=== PATIENT | female | born 1975 | race Caucasian/White ===

== ENCOUNTER → 2019-04-18 | Outpatient (CLI) | payer OTHER ==
[~2019-04-18] MED LIST: AMOCLA875 PO; HYDACE5 PO; HYDACE5325 PO; NAPR500 PO; PENVK250 PO; PENVK500 PO; RXHYD5325 PO
[2019-04-18 17:23] LABS: BASOPHILS ABSOLUTE AUTO 0.03 K/mm3 (0.00-0.23); BASOPHILS PERCENT AUTO 0 % (0-2); EOSINOPHILS ABSOLUTE AUTO 0.05 K/mm3 (0.00-0.68); EOSINOPHILS PERCENT AUTO 1 % (0-6); Hematocrit 41.8 % (33.0-51.0); Hemoglobin 14.1 g/dL (11.5-16.0); IMMATURE GRAN ABSOLUTE AUTO 0.02 K/mm3 (0.00-0.10); IMMATURE GRAN PERCENT AUTO 0 % (0-1); LYMPHOCYTES ABSOLUTE AUTO 1.78 K/mm3 (0.84-5.20); LYMPHOCYTES PERCENT AUTO 25 % (21-46); MONOCYTES ABSOLUTE AUTO 0.67 K/mm3 (0.16-1.47); MONOCYTES PERCENT AUTO 9 % (4-13); Mean Corpuscular HGB 33.2 pg (26.0-34.0); Mean Corpuscular HGB Conc 33.7 g/dL (31.5-36.5); Mean Corpuscular Volume 98 fL (80-100); Mean Platelet Volume 9.7 fL (9.1-12.4); NEUTROPHILS ABSOLUTE AUTO 4.68 K/mm3 (1.96-9.15); NEUTROPHILS PERCENT AUTO 65 % (41-73); Platelet Count 242 K/mm3 (150-400); RDW Coefficient Variation 13.2 % (11.7-14.2); RDW Standard Deviation 47.3 fL (35.1-46.3); Red Blood Cell Count 4.25 M/mm3 (3.80-5.20); White Blood Cell Count 7.23 K/mm3 (4.00-11.30)
[2019-04-18 17:47] LABS: Bun/Creatinine Ratio 13.3 (12.0-20.0); Calcium, Blood 8.8 mg/dL (8.5-10.1); Creatinine, Blood 1.05 mg/dL (0.40-1.00); Thyroid Stimulating Hormone 1.885 uIU/mL (0.360-4.800)
== END ==
LOC: LAB SHORT 17:17
PROVIDERS: Physician Assistant Surgical
DX: R00.2 Palpitations (principal); R53.83 Other fatigue
CPT/HCPCS: 80048; 84443; 85025

== ENCOUNTER 2019-08-28 04:32 | Observation (INO) | payer OTHER ==
[~2019-08-28] VITALS: Ht 165.1 cm; Wt 81.6 kg
[2019-08-28] MEDS ORDERED: Chantix1 MG PO (05:22)
[2019-08-28 05:23] LABS: BASOPHILS ABSOLUTE AUTO 0.02 K/mm3 (0.00-0.23); BASOPHILS PERCENT AUTO 0 % (0-2); EOSINOPHILS ABSOLUTE AUTO 0.03 K/mm3 (0.00-0.68); EOSINOPHILS PERCENT AUTO 0 % (0-6); Hematocrit 40.3 % (33.0-51.0); Hemoglobin 13.8 g/dL (11.5-16.0); IMMATURE GRAN ABSOLUTE AUTO 0.02 K/mm3 (0.00-0.10); IMMATURE GRAN PERCENT AUTO 0 % (0-1); LYMPHOCYTES ABSOLUTE AUTO 1.39 K/mm3 (0.84-5.20); LYMPHOCYTES PERCENT AUTO 16 % (21-46); MONOCYTES ABSOLUTE AUTO 0.74 K/mm3 (0.16-1.47); MONOCYTES PERCENT AUTO 9 % (4-13); Mean Corpuscular HGB 33.2 pg (26.0-34.0); Mean Corpuscular HGB Conc 34.2 g/dL (31.5-36.5); Mean Corpuscular Volume 97 fL (80-100); Mean Platelet Volume 9.9 fL (9.1-12.4); NEUTROPHILS ABSOLUTE AUTO 6.49 K/mm3 (1.96-9.15); NEUTROPHILS PERCENT AUTO 75 % (41-73); Platelet Count 252 K/mm3 (150-400); RDW Coefficient Variation 12.2 % (11.7-14.2); RDW Standard Deviation 43.9 fL (35.1-46.3); Red Blood Cell Count 4.16 M/mm3 (3.80-5.20); White Blood Cell Count 8.69 K/mm3 (4.00-11.30)
[2019-08-28 05:42] LABS: Alanine Aminotransfer (ALT/SGP 43 U/L (12-78); Albumin, Blood 3.9 g/dL (3.4-5.0); Alk Phos 122 U/L (50-136); Anion Gap 7 mmol/L (6-16); Aspartate Aminotrans (AST/SGOT 29 U/L (12-37); Bilirubin, Total 0.8 mg/dL (0.1-1.0); Blood Urea Nitrogen 14 mg/dL (8-24); Bun/Creatinine Ratio 13.2 (12.0-20.0); CO2, Blood 29 mmol/L (21-32); Calcium, Blood 8.7 mg/dL (8.5-10.1); Chloride, Blood 103 mmol/L (98-108); Creatinine, Blood 1.06 mg/dL (0.40-1.00); Ethanol (Alcohol), Blood, Med <3 mg/dL; Globulin, Blood 4.1 g/dL (2.2-4.0); Glomerular Filtration Rate 60 (60-); Glucose, Blood 153 mg/dL (70-99); Potassium, Blood 3.7 mmol/L (3.5-5.5); Sodium, Blood 139 mmol/L (136-145)
--- NOTE | 2019-08-28 09:43 | NUR ---
ASSUMED CARE RECEIVED REPORT FROM [facility] ED-RN @ 0906 D/T PRIMARY RN UNAVAILABLE. PT ARRIVED VIA STRETCHER @ 0930 TO ROOM 313, INDEPENDENTLY TRANSFERRED SELF TO BED. C/O NAUSEA, NO VOMITING. AWAITING ORDERS FOR MEDICATIONS. PT SETTLED TO ROOM, ORIENTED TO CALL [place], BED IN LOWEST POSITION, CALL LIGHT NEAR. WILL CONTINUE TO MONITOR.
--- NOTE | 2019-08-28 18:27 | NUR ---
Shift Summary A/Ox3, pleasant and cooperative with care. Medicated for pain x 1 with minimal result. Nausea and vomiting with green emesis roughly around 200 cc, medicated for this x 2 with good results. NPO at this time, no order for water or ice chips. Up in room independently and to the bathroom. Calls appropriately for needs. RA, VSS, afebrile. Will continue to monitor.
[2019-08-29 06:25] LABS: Calcium, Blood 7.6 mg/dL (8.5-10.1); Creatinine, Blood 1.07 mg/dL (0.40-1.00); Potassium, Blood 3.8 mmol/L (3.5-5.5)
--- NOTE | 2019-08-29 06:31 | NUR ---
SHIFT SUMMARY PT IS A 43 Y/O FEMALE, ADMITTED FOR ABD PAIN AND COLITIS. SHE IS A&O X 4, INDEPENDENT IN THE ROOM. PT WAS MEDICATED ONCE WITH PRN DILAUDID FOR ABD PAIN. NO COMPLAINTS OF NAUSEA OR SOB. VITAL SIGNS STABLE. PT RECEIVED ONE BAG NS + K+. NO OTHER ACUTE CHANGES IN PT CONDITION NOTED. WILL CONTINUE TO MONITOR AND TREAT PER EMAR UNTIL HAND OFF TO DAY SHIFT RN.
--- NOTE | 2019-08-29 07:49 | NUR ---
Patient c/o 9/10 pain this AM. Also asked for EGD procedure. Dr. Walters notified of patient's request for EGD, order received. Water only, NPO @ 1300. Medicated for pain per EMAR.
--- NOTE | 2019-08-29 11:20 | NUR ---
PER IVANIA FLORENCE TO D/C CLAUDIA.
--- NOTE | 2019-08-29 19:43 | NUR ---
Shift Summary A/Ox4, medicated for pain x 2 and nausea x 1 with good results. Patient has been NPO since [address] Waltesr's order for upper endoscopy scheduled for this evening. Up in room independently. Patient is tearful when pain becomes unbearable. Care handed off to night LIZZETH Decker.
--- NOTE | 2019-08-29 20:54 | NUR ---
pt tearful and having abd pains. pt anxious and wants to know when egd is going to be. pt notified egd is going to be tonight, there is a couple of pt in front of her. pt notified of this. pt still painful after dilaudid given. additional pillow provided for comfort. pt is very anxious. pt's needs were heard.
--- NOTE | 2019-08-30 04:46 | NUR ---
SKI LIFT MECHANIC SUMMARY PT A/O X4. DR. BOONE SAW PT LAST NIGHT. PT SWITCHED FROM NPO TO REGULAR DIET. PT STATED SHE FELT BETTER AFTER EATING A BIT. EGD TO BE DONE IN AM. ORDER THEN SWITCHED TO WATER ONLY AND THEN TO BE NPO AT [address] BOONE. MEDICATED FOR PAIN PER EMAR. VSS. SLEPT WELL TONIGHT.
--- NOTE | 2019-08-30 09:59 | NUR ---
08/30/19 0959 Juanita Argueta History, Chart, Medications and Allergies reviewed before start of procedure. 3-LEAD EKG REVIEWED WITH PHYSICIAN PRIOR TO START OF PROCEDURE. MONITOR INTACT WITH CONTINUOUS PULSE OXIMETRY AND INTERMITTENT BP. O2 VIA N/C INTACT THROUGHOUT SEDATION/PROCEDURE. PATIENT DETERMINED TO BE ASA APPROPRIATE FOR PROPOFOL SEDATION PRIOR TO START OF PROCEDURE BY DR. BOONE.
--- NOTE | 2019-08-30 10:14 | NUR ---
Patient up to Ambulate independently. Gait steady. History, Chart, Medications and Allergies reviewed before start of procedure.Lungs clear T/O to Auscultation. Patient confirms NPO status and agrees with scheduled surgery. UPPER DENTURES, NECKLACE REMOVED, BAGGED AND LABELED.
[2019-08-30] MEDS ORDERED: ONDA4 PO (16:05)
[2019-08-30] MEDS ORDERED: OMEP20ER PO (16:06)
--- NOTE | 2019-08-30 18:15 | NUR ---
PT HAD ALL PAPER WORK AND EDUCATIONAL MATERIAL SIGNED. ALL PERSONAL BELONGINGS WITH PT. PT WAS ESCORTED TO N ENTRANCE VIA WHEEL CHAIR NO DISTRESS NOTED ABLE TO AMBULATE WELL. MOTHER TO TRANSPORT HOME.
== END 2019-08-30 14:33 | disposition home or self-care (01) ==
LOC: ER 04:32 → MEDS 04:33
PROVIDERS: Emergency Medicine; Internal Medicine Gastroenterology; ADMIT Internal Medicine Endocrinology, Diabetes & Metabolism
PROC: 0DB68ZZ Excision of Stomach, Via Natural or Artificial Opening Endoscopic (ICD-10-PCS; principal; 2019-08-30 10:00)
DX: K29.80 Duodenitis without bleeding (principal); K29.50 Unspecified chronic gastritis without bleeding; B96.81 Helicobacter pylori [H. pylori] as the cause of diseases classified elsewhere; F10.10 Alcohol abuse, uncomplicated; J44.9 Chronic obstructive pulmonary disease, unspecified; Z87.891 Personal history of nicotine dependence; Y90.0 Blood alcohol level of less than 20 mg/100 ml
CPT/HCPCS: 36415; 74176; 80048; 80053; 83690; 84484; 85025; 88305; 88342; 93005; 93010; 96361; 96374; 96375; 96376; 99285-25; C9113; G0378; G0480; J1170; J1630; J2405; J2550; J2704; J3480; J7030; J7120; U0002

== ENCOUNTER → 2019-10-28 | Outpatient (CLI) | payer OTHER ==
[~2019-10-28] MED LIST changes: +Chantix1 MG PO; +OMEP20ER PO; +ONDA4 PO
== END | disposition home or self-care (01) ==
LOC: LAB SHORT 09:25 → LAB 09:25
DX: K29.60 Other gastritis without bleeding (principal)
CPT/HCPCS: 87338

== ENCOUNTER 2020-06-13 11:55 | Emergency (ER) | payer OTHER ==
[~2020-06-13] VITALS: Ht 165.1 cm; Wt 77.1 kg
[2020-06-13] MEDS ORDERED: CEFU500T30 PO (12:08)
[2020-06-13] MEDS ORDERED: MONDOXYNE NL100 MG PO (12:09)
[2020-06-16] MEDS ORDERED: IBUP400 PO (11:51)
== END 2020-06-13 12:26 | disposition home or self-care (01) ==
LOC: ER 11:55
DX: L02.414 Cutaneous abscess of left upper limb (principal); J44.9 Chronic obstructive pulmonary disease, unspecified; Z87.891 Personal history of nicotine dependence; Z88.5 Allergy status to narcotic agent
CPT/HCPCS: 99282

== ENCOUNTER 2020-06-16 09:23 | Emergency (ER) | payer OTHER, SELFPAY ==
[~2020-06-16] VITALS: Ht 165.1 cm; Wt 79.8 kg
== END 2020-06-16 12:05 | disposition home or self-care (01) ==
LOC: ER 09:23
DX: I80.8 Phlebitis and thrombophlebitis of other sites (principal); S40.022A Contusion of left upper arm, initial encounter; F19.10 Other psychoactive substance abuse, uncomplicated; J44.9 Chronic obstructive pulmonary disease, unspecified; Z87.891 Personal history of nicotine dependence; Z88.5 Allergy status to narcotic agent; X58.XXXA Exposure to other specified factors, initial encounter
CPT/HCPCS: 93971; 99283-25

== ENCOUNTER 2024-09-17 11:01 | Emergency (ER) | payer OTHER ==
[~2024-09-17] VITALS: Ht 165.1 cm; Wt 70.3 kg
[~2024-09-17 11:01] MED LIST changes: +CEFU500T30 PO; +HYDR1TAB94 PO; +IBUP400 PO; +IBUP600 PO; +MONDOXYNE NL100 MG PO
[2024-09-17 11:09] VITALS: BP 141/99
[2024-09-17] MEDS ORDERED: Ketorolac Tromethamine 15mg Vial IV ONE (11:20)
[2024-09-17] MEDS ORDERED: Ondansetron HCl 2 MG / ML 2ML Vial IV ONE (11:20)
[2024-09-17 11:45] LABS: Source, Urine Clean Catch
[2024-09-17 11:50] LABS: BASOPHILS ABSOLUTE AUTO 0.04 K/mm3 (0.00-0.23); BASOPHILS PERCENT AUTO 1 % (0-2); EOSINOPHILS ABSOLUTE AUTO 0.08 K/mm3 (0.00-0.68); EOSINOPHILS PERCENT AUTO 1 % (0-6); Hematocrit 40.1 % (33.0-51.0); Hemoglobin 13.8 g/dL (11.5-16.0); IMMATURE GRAN ABSOLUTE AUTO 0.01 K/mm3 (0.00-0.10); IMMATURE GRAN PERCENT AUTO 0 % (0-1); LYMPHOCYTES ABSOLUTE AUTO 2.05 K/mm3 (0.84-5.20); LYMPHOCYTES PERCENT AUTO 32 % (21-46); MONOCYTES ABSOLUTE AUTO 0.57 K/mm3 (0.16-1.47); MONOCYTES PERCENT AUTO 9 % (4-13); Mean Corpuscular HGB Conc 34.4 g/dL (31.5-36.5); Mean Corpuscular Volume 96 fL (80-100); NEUTROPHILS ABSOLUTE AUTO 3.59 K/mm3 (1.96-9.15); NEUTROPHILS PERCENT AUTO 57 % (41-73); NRBC ABSOLUTE 0.00 K/mm3 (0.00-0.02); NRBC Auto 0.0 /100 WBC (0.0-0.2); Platelet Count 257 K/mm3 (150-400); RDW Coefficient Variation 12.6 % (11.7-14.2); RDW Standard Deviation 44.8 fL (35.1-46.3)
[2024-09-17 11:52] LABS: Bilirubin, Urine Neg (Neg); Color, Urine Yellow (P-Yellow); Glucose Qualitative, Urine Neg (Neg); Ketones, Urine Neg (Neg); Leukocyte Esterase, Urine Neg (Neg); Protein, Urine Neg (Neg); Specific Gravity, Urine 1.005 (1.003-1.022); Urobilinogen, Urine NORM (Normal)
[2024-09-17 12:20] LABS: Magnesium, Blood 2.0 mg/dL (1.6-2.4)
[2024-09-17 12:21] LABS: Alanine Aminotransfer (ALT/SGP 32.0 U/L (12-78); Albumin, Blood 3.8 g/dL (3.4-5.0); Albumin/Globulin Ratio 1.0 (0.8-1.8); Anion Gap 7.0 mmol/L (3-11); Aspartate Aminotrans (AST/SGOT 25.0 U/L (12-37); Bilirubin, Total 0.9 mg/dL (0.1-1.0); Blood Urea Nitrogen 12.0 mg/dL (8-24); CO2, Blood 28.0 mmol/L (21-32); Calcium, Blood 8.6 mg/dL (8.5-10.1); Chloride, Blood 102.0 mmol/L (98-108); Creatinine, Blood 0.92 mg/dL (0.40-1.00); Globulin, Blood 3.8 g/dL (2.2-4.0); Glucose, Blood 109.0 mg/dL (70-99); Potassium, Blood 3.8 mmol/L (3.5-5.5); Sodium, Blood 133.0 mmol/L (136-145); Total Protein, Blood 7.6 g/dL (6.4-8.2)
[2024-09-17] MEDS ORDERED: ONDA4ODT MM (12:27)
== END 2024-09-17 12:46 | disposition home or self-care (01) ==
LOC: ER 11:01
PROVIDERS: Student in an Organized Health Care Education/Training Program
DX: R10.9 Unspecified abdominal pain (principal); J44.9 Chronic obstructive pulmonary disease, unspecified; Z87.891 Personal history of nicotine dependence; Z88.5 Allergy status to narcotic agent
CPT/HCPCS: 74177; 80053; 81003; 81025; 83735; 85025; 96374; 96375; 99284-25; J1885; J2405; J7120; Q9967